=== PATIENT | female | born 2000 | race Caucasian/White ===

== ENCOUNTER 2021-01-27 11:10 | Emergency (ER) | payer OTHER, MEDICAID, SELFPAY ==
[2021-01-27 11:29] VITALS: BP 113/60; PULSE 88; RESP 18; TEMP 36.6; O2SAT 100
--- NOTE | 2021-01-27 14:42 | CM.SWNOTE ---
SWEEP MOLDER Note SWEEP MOLDER receives consult. Patient and mother leave ED waiting area prior to meeting with SWEEP MOLDER and ED provider. SWEEP MOLDER calls patient's mother for f/u call. Mother endorses that she could not wait in the ED due to prior arrangements with patient's caregiver. Mother endorses that patient has ASD and is connected with [facility] services and has 84 respite hours a month. Mother endorses concern that patient has further diagnoses that need to be evaluated and that patient has made statements of jumping off of a bridge. SWEEP MOLDER encourages patient and mother to return to ED in emergent situations. Mother endorses that she will ensure patient safety. Mother provides email address and SWEEP MOLDER email crisis response contacts and a list of psychiatrists and psychologists that accept patient's insruance. Mother endorses that patient does not currently have a PCP. Mother endorses that patient has counselor and SWEEP MOLDER can contact counselor when mother provides name and contact information. SWEEP MOLDER to f/u with patient's counselor to coordinate care. LEANNE Klein
== END 2021-01-27 13:17 | disposition left against medical advice (07) ==
PROVIDERS: Emergency Provider Emergency Medicine
DX: Z53.21 Procedure and treatment not carried out due to patient leaving prior to being seen by health care provider (principal)
CPT/HCPCS: 99281